=== PATIENT | female | born 1980 | race Caucasian/White ===

== ENCOUNTER 2019-09-15 20:21 | Emergency (ER) | payer OTHER ==
[~2019-09-15] VITALS: Ht 167.6 cm; Wt 58.9 kg
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
[2019-09-15 20:34] VITALS: BP 120/90
[2019-09-15] MEDS ORDERED: ACETAMINOPHEN 500 MG TABLET PO ONE ×2 (21:59→22:00)
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
== END 2019-09-15 22:30 | disposition home or self-care (01) ==
LOC: ER 20:21
DX: S06.0X0A Concussion without loss of consciousness, initial encounter (principal); S00.83XA Contusion of other part of head, initial encounter; S10.93XA Contusion of unspecified part of neck, initial encounter; S40.012A Contusion of left shoulder, initial encounter; S05.12XA Contusion of eyeball and orbital tissues, left eye, initial encounter; Y08.89XA Assault by other specified means, initial encounter; Y93.89 Activity, other specified; Y92.148 Other place in prison as the place of occurrence of the external cause; Y99.0 Civilian activity done for income or pay
CPT/HCPCS: 70450; 70486; 71046; 72125; 99285-25